=== PATIENT | male | born 1985 | race Caucasian/White ===

== ENCOUNTER 2016-07-15 16:16 | Inpatient (IN) | payer OTHER ==
[~2016-07-15] VITALS: Ht 182.9 cm; Wt 75.4 kg
[2016-07-15] VITALS (12 sets, daily range): BP systolic 100–134; BP diastolic 62–91; PULSE 58–66; RESP 16; O2SAT 98–100
[~2016-07-15 16:16] MED LIST: FLUO20CA4 PO; FOLI5CAP PO; GABA300C5 PO; IBUP800T23 PO; LITH300C2 PO; LURA40 PO; MIRTA15 PO; PRAZ2 PO; SERO200T PO; SERO400T PO; THIA50CA PO
[2016-07-15] MEDS ORDERED: ETOMIDATE 40 MG/20 ML VIAL ONE (16:21)
[2016-07-15] MEDS ORDERED: SUCCINYLCHOLINE CHLORIDE 200 MG/10 ML VIAL ONE (16:21)
[2016-07-15] MEDS ORDERED: PROPOFOL 1000 MG/100 ML INJ 100 ML ONE (16:22)
[2016-07-15] MEDS ORDERED: SODIUM CHLOR 0.9% 1000 ML INJ 1,000 ML IV SCH (16:40)
[2016-07-15] MEDS ORDERED: SODIUM CHLORIDE 0.9% FLUSH 5 ML FLUSH IVF PRN (16:45)
[2016-07-15] MEDS ORDERED: PROPOFOL 1000 MG/100 ML INJ 100 ML IV SCH (17:00)
[2016-07-15] MEDS ORDERED: SUCCINYLCHOLINE CHLORIDE 200 MG/10 ML VIAL IV PUSH ONE (17:00)
[2016-07-15] MEDS ORDERED: ETOMIDATE 20 MG/10 ML VIAL IV PUSH ONE (17:00)
[2016-07-15 17:09] LABS: AUTOMATED NEUTROPHIL # 4.7 TH/MM3 (1.8-7.7); BASOPHIL % 0.3 % (0.0-2.0); EOSINOPHIL % 0.6 % (0.0-4.0); HEMO FLAGS DIFF FINAL; LYMPH % 18.5 % (9.0-44.0); LYMPHOCYTE # 1.2 TH/MM3 (1.0-4.8); MEAN CELL VOLUME 89.5 FL (80.0-100.0); MEAN CORPUSCULAR HEMOGLOBIN 30.4 PG (27.0-34.0); MONO % 9.2 % (0.0-8.0); NEUT % 71.4 % (16.0-70.0); PLATELET COUNT 211 TH/MM3 (150-450); RED BLOOD COUNT 5.03 MIL/MM3 (4.50-5.90); WHITE BLOOD COUNT 6.6 TH/MM3 (4.0-11.0)
--- NOTE | 2016-07-15 17:19 | RADRPT ---
EXAM DATE/TIME: 07/15/2016 14:52 [place] COMPARISON: CHEST SINGLE AP, May 19, 2013, 14:56. INDICATIONS : Patient overdosed. MEDICAL HISTORY : schizophrenia, bipolar. SURGICAL HISTORY : None. ENCOUNTER: Initial ACUITY: 1 day PAIN SCORE: Non-responsive. LOCATION: Bilateral chest FINDINGS: A single view of the chest demonstrates the lungs to be symmetrically aerated without evidence of mas s, infiltrate or effusion. The cardiomediastinal contours are unremarkable. Osseous structures are intact. Endotracheal tube appropriately positioned above the alexadner. Nasogastric tube is seen in the gastric fundus. CONCLUSION: No acute cardiopulmonary process. Joesph Tamayo MD on July 15, 2016 at 17:17 Board Certified Radiologist. This report was verified electronically.
[2016-07-15 17:25] LABS: APTT (PATIENT) 26.5 SEC (24.3-30.1); PROTHROMBIN TIME - PATIENT 10.5 SEC (9.8-11.6)
[2016-07-15 17:26] LABS: BLOOD, URINE NEG (NEG); GLUCOSE,URINE NEG (NEG); KETONE, URINE NEG (NEG); MUCUS URINE FEW /lpf (OCC); NITRITE,URINE NEG (NEG); URINE COLOR LIGHT-YELLOW (YELLW/STRAW)
[2016-07-15 17:28] LABS: COMMENT (UR) CATH-CULT NOT IND; CULTURE IF INDICATED CATH CULTURE NOT IND
[2016-07-15 17:29] LABS: AMPHETAMINE, URINE POS (NEG); BARBITURATES, URINE NEG (NEG); COCAINE, URINE POS (NEG)
[2016-07-15 17:41] LABS: ALKALINE PHOSPHATASE 131 U/L (45-117); ALT (GPT) 34 U/L (12-78); ANION GAP 5 MEQ/L (5-15); AST (GOT) 39 U/L (15-37); BICARBONATE 27.4 MEQ/L (21.0-32.0); BLOOD UREA NITROGEN 9 MG/DL (7-18); CHLORIDE 106 MEQ/L (98-107); CREATINE KINASE 264 U/L (39-308); GLOMERULAR FILTRATION RATE 88 ML/MIN (>89); SODIUM (NA) 138 MEQ/L (136-145); TOTAL BILIRUBIN ADULT 0.5 MG/DL (0.2-1.0)
[2016-07-15 17:42] LABS: ACETAMINOPHEN LESS THAN 2.0 MCG/ML (10.0-30.0)
--- NOTE | 2016-07-15 17:45 | PD ---
HPI Chief Complaint: Alcohol/Drug Intoxication Time Seen by Provider: 16:40 Travel History International Travel<30 days: No (UNABLE TO ASSESS ) Contact w/Intl Traveler<30days: No (UNABLE TO ASSESS ) Traveled to known affect area: No (UNABLE TO ASSESS ) History of Present Illness HPI Patient is a 30-year-old male brought in by EMS with OPA in place, ventilations assisted by BVM. Per EMS patient took some of his mother's pills at home in an attempt to commit suicide. Per EMS he has history of suicide attempts in the past. Patient is unconscious, cannot provide any history. PFSH Past Medical History Medical History: Unable to Obtain ADHD: Yes ( A CHILD) Arthritis: No Asthma: No Bipolar Disorder: Yes Anxiety: Yes Depression: Yes High Cholesterol: No Cerebrovascular Accident: Yes Diminished Hearing: No Endocrine: No Gastrointestinal Disorders: Yes GERD: Yes Genitourinary: No Hiatal Hernia: Yes (POSSIBLE) Hypertension: No Immune Disorder: No Implanted Vascular Access Dvce: No Kidney Stones: No Musculoskeletal: Yes Neurologic: No Psychiatric: Yes (Bipolar Disorder, Schizophrenia, borderline personailty, anxiety) Reproductive: No Respiratory: No Immunizations Current: Yes Migraines: No Schizophrenia: Yes Sleep Apnea: No Thyroid Disease: No Ulcer: No Tetanus Vaccination: < 5 Years Influenza Vaccination: No (UNABLE TO ASSESS) Past Surgical History Surgical History: Unable to Obtain Pacemaker: No Other Surgery: No Social History Alcohol Use: Yes (DAILY) Tobacco Use: Yes (1 PPD ) Substance Use: Yes Allergies-Medications (Allergen,Severity, Reaction): Coded Allergies: *MDRO Multi-Drug Resistant Organism (Verified Adverse Reaction, Unknown, ) MRSA (arm) - 10/2013 MRSA PCR screen (nares) negative - 12/23/15 & 12/27/15 Cleared per Infection Control Reported Meds & Prescriptions Reported Meds & Active Scripts Active Ibuprofen 800 Mg Tab 800 Mg PO Q8H PRN Reported Fluoxetine (Fluoxetine HCl) 20 Mg Cap 20 Mg PO DAILY Thiamine (Thiamine HCl) 50 Mg Cap 50 Mg PO DAILY Gabapentin 300 Mg Cap 300 Mg PO TID Mirtazapine 15 Mg Tab 15 Mg PO HS Minipress (Prazosin HCl) 2 Mg Cap 2 Mg PO BID [place] Carbonate 300 Mg Cap 300 Mg PO TID Latuda (Lurasidone) 40 Mg Tab 40 Mg PO DAILY Folic Acid 5 Mg Cap 5 Mg PO DAILY Seroquel (Quetiapine Fumarate) 400 Mg Tab 400 Mg PO HS Seroquel (Quetiapine Fumarate) 200 Mg Tab 200 Mg PO BID Review of Systems ROS Limitations: Clinical Condition, Unresponsive Physical Exam Exam Limitations: Clinical Condition Narrative GENERAL: Unresponsive SKIN: Warm and dry. Superficial abrasion across the front of the neck. HEAD: Atraumatic. Normocephalic. EYES: Pupils equal and round. No scleral icterus. ENT:Mucous membranes pink and moist. NECK: Trachea midline. No JVD. CARDIOVASCULAR: Regular rate and rhythm. No murmur appreciated. RESPIRATORY: No accessory muscle use. Clear to auscultation. Breath sounds equal bilaterally. GASTROINTESTINAL: Abdomen soft, non-tender, nondistended. MUSCULOSKELETAL: No obvious deformities. No clubbing. No cyanosis. No edema. NEUROLOGICAL: Unresponsive. He does move his extremities, but has no response to painful stimuli. Data Data Last Documented VS Vital Signs Date Time Temp Pulse Resp B/P Pulse Ox O2 Delivery O2 Flow Rate FiO2 07/15/16 17:30 58 16 106/68 100 Ventilator 100 07/15/16 16:20 15 Orders Etomidate Inj (Amidate Inj) (07/15/16 16:21) Succinylcholine Inj (Quelicin Inj) (07/15/16 16:21) Propofol 1000 Mg/100 Ml Inj (Diprivan 10 (07/15/16 16:22) Ammonia (07/15/16 16:40) Complete Blood Count With Diff (07/15/16 16:40) Comprehensive Metabolic Panel (07/15/16 16:40) Creatine Kinase (Cpk) (07/15/16 16:40) Prothrombin Time / Inr (Pt) (07/15/16 16:40) Act Partial Throm Time (Ptt) (07/15/16 16:40) Troponin I (07/15/16 16:40) Urinalysis - C+S If Indicated (07/15/16 16:40) Ua Includes Microscopic (07/15/16 16:40) Chest, Single Ap (07/15/16 16:40) Blood Glucose (07/15/16 16:40) Ecg Monitoring (07/15/16 16:40) Iv Access Insert/Monitor (07/15/16 16:40) Oximetry (07/15/16 16:40) Urinary Catheter Insert/Apply (07/15/16 16:40) Sodium Chloride 0.9% Flush (Ns Flush) (07/15/16 16:45) Sodium Chlor 0.9% 1000 Ml Inj (Ns 1000 M (07/15/16 16:40) Drug Screen, Random Urine (07/15/16 16:40) Alcohol (Ethanol) (07/15/16 16:40) Tylenol (Acetaminophen) (07/15/16 16:40) Salicylates (Aspirin) (07/15/16 16:40) Etomidate Inj (Amidate Inj) (07/15/16 17:00) Succinylcholine Inj (Quelicin Inj) (07/15/16 17:00) Propofol 1000 Mg/100 Ml Inj (Diprivan 10 (07/15/16 17:00) Admit Order (Ed Use Only) (07/15/16 ) Consult Psychiatry (07/15/16 ) Direct Bilirubin (07/15/16 16:45) Labs Laboratory Tests Test 07/15/16 16:45 White Blood Count 6.6 TH/MM3 Red Blood Count 5.03 MIL/MM3 Hemoglobin 15.3 GM/DL Hematocrit 45.0 % Mean Corpuscular Volume 89.5 FL Mean Corpuscular Hemoglobin 30.4 PG Mean Corpuscular Hemoglobin 34.0 % Concent Red Cell Distribution Width 14.0 % Platelet Count 211 TH/MM3 Mean Platelet Volume 9.6 FL Neutrophils (%) (Auto) 71.4 % Lymphocytes (%) (Auto) 18.5 % Monocytes (%) (Auto) 9.2 % Eosinophils (%) (Auto) 0.6 % Basophils (%) (Auto) 0.3 % Neutrophils # (Auto) 4.7 TH/MM3 Lymphocytes # (Auto) 1.2 TH/MM3 Monocytes # (Auto) 0.6 TH/MM3 Eosinophils # (Auto) 0.0 TH/MM3 Basophils # (Auto) 0.0 TH/MM3 CBC Comment DIFF FINAL Differential Comment Prothrombin Time 10.5 SEC Prothromb Time International 1.0 RATIO Ratio Activated Partial 26.5 SEC Thromboplast Time Urine Color LIGHT-YELLOW Urine Turbidity CLEAR Urine pH 5.0 Urine Specific [place] 1.007 Urine Protein NEG mg/dL Urine Glucose (UA) NEG mg/dL Urine Ketones NEG mg/dL Urine Occult Blood NEG Urine Nitrite NEG Urine Bilirubin NEG Urine Urobilinogen LESS THAN 2.0 MG/DL Urine Leukocyte Esterase NEG Urine RBC LESS THAN 1 /hpf Urine WBC 1 /hpf Urine Bacteria /hpf Urine Mucus FEW /lpf Microscopic Urinalysis Comment CATH-CULT NOT IND Sodium Level 138 MEQ/L Potassium Level 5.0 MEQ/L Chloride Level 106 MEQ/L Carbon Dioxide Level 27.4 MEQ/L Anion Gap 5 MEQ/L Blood Urea Nitrogen 9 MG/DL Creatinine 0.99 MG/DL Estimat Glomerular Filtration 88 ML/MIN Rate Random Glucose 100 MG/DL Calcium Level 9.0 MG/DL Total Bilirubin 0.5 MG/DL Direct Bilirubin 0.1 MG/DL Aspartate Amino Transf 39 U/L (AST/SGOT) Alanine Aminotransferase 34 U/L (ALT/SGPT) Alkaline Phosphatase 131 U/L Ammonia 26 MCMOL/L Total Creatine Kinase 264 U/L Troponin I LESS THAN 0.02 NG/ML Total Protein 7.1 GM/DL Albumin 3.4 GM/DL Salicylates Level 4.5 MG/DL Urine Opiates Screen NEG Acetaminophen Level LESS THAN 2.0 MCG/ML Urine Barbiturates Screen NEG Urine Amphetamines Screen POS Urine Benzodiazepines Screen POS Urine Cocaine Screen POS Urine Cannabinoids Screen POS Ethyl Alcohol Level LESS THAN 3 MG/DL MDM Medical Decision Making Medical Screen Exam Complete: Yes Emergency Medical Condition: Yes Medical Record Reviewed: Yes Interpretation(s) ECG shows sinus rhythm at 64, no evidence of QT prolongation or QRS widening. Differential Diagnosis Drug overdose versus intoxication versus infection versus encephalopathy Narrative Course Patient is a 30-year-old male who is brought in by EMS unresponsive. Per EMS she took several pills today. EMS brought M.D. pill bottles for clopidogrel, metoprolol, sertraline, amitriptyline, gabapentin, nitroglycerine. Family on scene was unable to express when he took the pills. Patient placed on telemetry monitor when he arrived. IV was established by EMS. Decision made to intubate. Patient intubated without incident and connected to the ventilator. Patient started on propofol drip for sedation. Labs sent. Urine drug screen is positive for amphetamines, benzodiazepines, opiates, cocaine. The nurse spoke with poison control who suggests observation for QT prolongation and hypotension. If QT prolongs or QRS widens, will need bicarb. Supportive care otherwise. Psych consult placed, patient is under a [place] Act. Patient admitted to ICU for further management. Procedures Procedure Narrative Performed emergently INTUBATION: The patient was put in optimal position for the procedure. Rapid sequence intubation was initiated by me using 20 milligrams of etomidate IV and 100 milligrams of succinylcholine IV. The patient was intubated with a 8.0 cuffed endotracheal tube. Tube placement was confirmed by visualization of the tube and balloon passing through the cords, capnometry and subsequent chest x-ray. Breath sounds were equal and well aerated bilaterally postintubation. No breath sounds over stomach. Patient tolerated procedure well. Diagnosis Primary Impression: Respiratory failure Qualified Code: J96.00 - Acute respiratory failure, unspecified whether with hypoxia or hypercapnia Additional Impression: Suicidal overdose Qualified Code: T50.902A - Suicidal overdose, initial encounter Admitting Information Admitting Physician Requests: Admit Zoya Collins MD Jul 15, 2016 17:45
[2016-07-15] MEDS ORDERED: MISCELLANEOUS NURSING INFORMATION XX SCH (18:00)
[2016-07-15] MEDS ORDERED: ACETAMINOPHEN 325 MG TAB PO PRN (18:00)
[2016-07-15] MEDS ORDERED: CHLORHEXIDINE GLUCONATE 2 % 1 PACK (2 CLOTHS) TOP PRN (18:00)
[2016-07-15] MEDS ORDERED: MORPHINE SULFATE 4 MG/ML INJ IV PRN (18:00)
[2016-07-15] MEDS ORDERED: LORazepam 2 MG/ML VIAL IV PRN (18:00)
[2016-07-15] MEDS ORDERED: ONDANSETRON HCL 4 MG/2 ML VIAL IV PRN (18:00)
[2016-07-15] MEDS ORDERED: SODIUM CHLORIDE 0.9% FLUSH 5 ML FLUSH IV FLUSH PRN (18:00)
[2016-07-15] MEDS ORDERED: RESP: ALBUTEROL 2.5 MG/IPRATROPIUM 0.5 MG NEB (PRN) INH (18:00)
[2016-07-15] MEDS ORDERED: METOCLOPRAMIDE HCL 10 MG/2 ML VIAL IV PRN (18:00)
--- NOTE | 2016-07-15 18:04 | HHI.HP ---
HPI Service Critical Care Medicine Primary Care Physician No Primary Care Physician Admission Diagnosis Overdose Diagnosis: Travel History International Travel<30 Days: No (UNABLE TO ASSESS ) Contact w/Intl Traveler <30 Da: No (UNABLE TO ASSESS ) Traveled to Known Affected Are: No (UNABLE TO ASSESS ) History of Present Illness 30-year-old very unfortunate male with history of depressions and polysubstance abuse brought in by EMS with OPA in place, ventilations assisted by BVM. Per EMS patient took some of his mother's pills at home in an attempt to commit suicide. He has history of suicide attempts in the past. Patient was unresponsive and was intubated by ER attending. Review of Systems ROS Unable to obtain patient is sedated and intubated Past Family Social History Allergies: Coded Allergies: *MDRO Multi-Drug Resistant Organism (Verified Adverse Reaction, Unknown, Cleared, 07/16/16) MRSA (arm) - 10/2013 MRSA PCR screen (nares) negative - 12/23/15 & 12/27/15 Cleared per Infection Control Past Medical History Polysubstance abuse Depression Multiple suicidal attempts Past Surgical History Unable to obtain patient is sedated and intubated Reported Medications Reported Meds & Active Scripts Active Ibuprofen 800 Mg Tab 800 Mg PO Q8H PRN Reported Fluoxetine (Fluoxetine HCl) 20 Mg Cap 20 Mg PO DAILY Thiamine (Thiamine HCl) 50 Mg Cap 50 Mg PO DAILY Gabapentin 300 Mg Cap 300 Mg PO TID Mirtazapine 15 Mg Tab 15 Mg PO HS Minipress (Prazosin HCl) 2 Mg Cap 2 Mg PO BID [place] Carbonate 300 Mg Cap 300 Mg PO TID Latuda (Lurasidone) 40 Mg Tab 40 Mg PO DAILY Folic Acid 5 Mg Cap 5 Mg PO DAILY Seroquel (Quetiapine Fumarate) 400 Mg Tab 400 Mg PO HS Seroquel (Quetiapine Fumarate) 200 Mg Tab 200 Mg PO BID Active Ordered Medications Current Medications Medications (Trade) Dose Ordered Sig/Vanessa Route PRN Reason Start Time Stop Time Status Last Admin Dose Admin Sodium Chloride (NS 1000 ml Inj) 1,000 ml @ 150 mls/hr Q6H40M IV 07/15/16 20:00 07/16/16 08:56 IV Flush (NS Flush) 2 ml UNSCH PRN IV FLUSH FLUSH AFTER USING IV ACCESS 07/15/16 18:00 IV Flush (NS Flush) 2 ml BID IV FLUSH 07/15/16 21:00 07/16/16 08:56 Acetaminophen (Tylenol) 650 mg Q6H PRN PO PAIN 1-10 AND/OR FEVER >101F 07/15/16 18:00 Morphine Sulfate (Morphine Inj) 2 mg Q2H PRN IV PAIN SCALE 6 TO 10 07/15/16 18:00 Famotidine (Pepcid Inj) 20 mg Q12HR IV PUSH 07/15/16 21:00 07/16/16 08:56 Lorazepam (Ativan Inj) 2 mg Q4H PRN IV Agitation/Sedation 07/15/16 18:00 Ondansetron HCl (Zofran Inj) 4 mg Q6H PRN IV NAUSEA OR VOMITING 07/15/16 18:00 Metoclopramide HCl (Reglan Inj) 10 mg Q6H PRN IV NAUSEA OR VOMITING 07/15/16 18:00 Docusate Sodium (Colace Liq) 100 mg Q12H G-TUBE 07/15/16 18:00 07/16/16 06:11 Enoxaparin Sodium (Lovenox Inj) 40 mg Q24H SQ 07/15/16 20:00 07/15/16 20:28 Miscellaneous Information 1 Q361D XX 07/15/16 18:00 07/15/16 18:00 Chlorhexidine Gluconate (Chlorhexidine 2% Cloth) 3 pack Taper DAILY@04 TOP 07/16/16 04:00 07/12/17 03:59 07/16/16 03:04 Chlorhexidine Gluconate 3 pack 3 pack UNSCH PRN TOP HYGIENIC CARE 07/15/16 18:00 Propofol (Diprivan 1000 Mg/100ml Inj) 100 ml @ 0 mls/hr TITRATE IV 07/15/16 18:00 07/16/16 08:56 Family History Noncontributory Social History Polysubstance abuse Physical Exam Vital Signs Vital Signs Date Time Temp Pulse Resp B/P Pulse Ox O2 Delivery O2 Flow Rate FiO2 07/15/16 16:28 100 07/15/16 16:20 66 16 98 Bag Valve 15 07/15/16 16:16 63 16 122/81 98 Physical Exam GENERAL: Well-nourished, well-developed patient. SKIN: Warm and dry. HEAD: Normocephalic. EYES: No scleral icterus. No injection or drainage. NECK: Supple, trachea midline. No JVD or lymphadenopathy. CARDIOVASCULAR: Regular rate and rhythm without murmurs, gallops, or rubs. RESPIRATORY: Breath sounds equal bilaterally. No accessory muscle use. GASTROINTESTINAL: Abdomen soft, non-tender, nondistended. MUSCULOSKELETAL: No cyanosis, or edema. BACK: Nontender without obvious deformity. No CVA tenderness. Laboratory Laboratory Tests Test 07/15/16 16:45 White Blood Count 6.6 Red Blood Count 5.03 Hemoglobin 15.3 Hematocrit 45.0 Mean Corpuscular Volume 89.5 Mean Corpuscular Hemoglobin 30.4 Mean Corpuscular Hemoglobin 34.0 Concent Red Cell Distribution Width 14.0 Platelet Count 211 Mean Platelet Volume 9.6 Neutrophils (%) (Auto) 71.4 Lymphocytes (%) (Auto) 18.5 Monocytes (%) (Auto) 9.2 Eosinophils (%) (Auto) 0.6 Basophils (%) (Auto) 0.3 Neutrophils # (Auto) 4.7 Lymphocytes # (Auto) 1.2 Monocytes # (Auto) 0.6 Eosinophils # (Auto) 0.0 Basophils # (Auto) 0.0 CBC Comment DIFF FINAL Differential Comment Prothrombin Time 10.5 Prothromb Time International 1.0 Ratio Activated Partial 26.5 Thromboplast Time Urine Color LIGHT-YELLOW Urine Turbidity CLEAR Urine pH 5.0 Urine Specific [place] 1.007 Urine Protein NEG Urine Glucose (UA) NEG Urine Ketones NEG Urine Occult Blood NEG Urine Nitrite NEG Urine Bilirubin NEG Urine Urobilinogen LESS THAN 2.0 Urine Leukocyte Esterase NEG Urine RBC LESS THAN 1 Urine WBC 1 Urine Bacteria Urine Mucus FEW Microscopic Urinalysis Comment CATH-CULT NOT IND Sodium Level 138 Potassium Level 5.0 Chloride Level 106 Carbon Dioxide Level 27.4 Anion Gap 5 Blood Urea Nitrogen 9 Creatinine 0.99 Estimat Glomerular Filtration 88 Rate Random Glucose 100 Calcium Level 9.0 Total Bilirubin 0.5 Aspartate Amino Transf 39 (AST/SGOT) Alanine Aminotransferase 34 (ALT/SGPT) Alkaline Phosphatase 131 Ammonia 26 Total Creatine Kinase 264 Troponin I LESS THAN 0.02 Total Protein 7.1 Albumin 3.4 Salicylates Level 4.5 Urine Opiates Screen NEG Acetaminophen Level LESS THAN 2.0 Urine Barbiturates Screen NEG Urine Amphetamines Screen POS Urine Benzodiazepines Screen POS Urine Cocaine Screen POS Urine Cannabinoids Screen POS Ethyl Alcohol Level LESS THAN 3 Result Diagram: 07/15/16 1645 07/15/16 1645 Imaging Last 24 hours Impressions Chest X-Ray 07/15/16 1640 Signed Impressions: Service Date/Time: Friday, July 15, 2016 14:52 - CONCLUSION: No acute cardiopulmonary process. Joesph Tamayo MD Assessment and Plan Problem List: (1) Bipolar affective disorder ICD Code: F31.9 Status: Acute (2) Substance intoxication ICD Code: F19.129 Status: Acute (3) Substance abuse ICD Code: F19.10 Status: Acute (4) Respiratory failure ICD Code: J96.90 Status: Acute (5) Suicidal overdose ICD Code: T50.902A Status: Acute Assessment and Plan Respiratory failure - Continue mechanical ventilation - Intubated for an airway protection - No weaning until neurologically improved Suicidal attempt - Psychiatry evaluation after extubation Depression - Resume home meds per psychiatry Polysubstance overdose - Including possible tricyclic antidepressants - Discussed with poison center - No bicarbonate indicated due to normal EKG DVT GI prophylaxis - Lovenox and Pepcid Critical Care: The total critical care time was 35 minutes. Time to perform other separately billable procedures was not included in the critical care time. Problem Qualifiers (1) Respiratory failure: Qualified Code: J96.00 - Acute respiratory failure, unspecified whether with hypoxia or hypercapnia (2) Suicidal overdose: Qualified Code: T50.902A - Suicidal overdose, initial encounter Bud Mosher MD Jul 15, 2016 18:03
[2016-07-15 18:19] LABS: BLOOD GAS BASE EXCESS 0.7 mmol/L (-2-2); BLOOD GAS CARBOXYHEMOGLOBIN 2.9 % (0-4); BLOOD GAS HCO3 25 mmol/L (22-26); BLOOD GAS METHEMOGLOBIN 1.9 % (0-2); BLOOD GAS O2 HGB SATURATION 95 % (90-100); BLOOD GAS OXYGEN CONTENT 21.7 Vol % (12.0-20.0); BLOOD GAS PCO2 39 mmHg (38-42); BLOOD GAS PO2 470 mmHG (61-120); BLOOD GAS TOTAL HGB 15.4 G/DL (12.0-16.0); TEMP CORR TO 98.6
[2016-07-15 18:20] LABS: CRITICAL VALUE NO; DRAW SITE RT RADIAL; FIO2 100 %; NUMBER OF ARTERIAL PUNCTURES 1; OXYGEN DEVICE VENTILATOR; STAT NO; ULNAR PULSE PRESENT; VENT SETTINGS SEE COMMENTS
[2016-07-15] MEDS: PROPOFOL 1000 MG/100 ML INJ 100 ML IV SCH (20:22)
[2016-07-15] MEDS: SODIUM CHLOR 0.9% 1000 ML INJ 1,000 ML IV SCH (20:28)
[2016-07-15] MEDS: ENOXAPARIN SODIUM 40 MG/0.4 ML SYRINGE SQ SCH (20:28)
[2016-07-15] MEDS: DOCUSATE SODIUM 100 MG/10 ML UDC G-TUBE SCH (20:29)
[2016-07-15] MEDS: SODIUM CHLORIDE 0.9% FLUSH 5 ML FLUSH IV FLUSH SCH (20:52)
[2016-07-15] MEDS: FAMOTIDINE 20 MG/2 ML VIAL IV PUSH SCH (22:36)
[2016-07-16] VITALS (20 sets, daily range): BP systolic 111–154; BP diastolic 69–109; PULSE 58–74; RESP 12–17; TEMP 97.4–99; O2SAT 97–100
[2016-07-16] MEDS: PROPOFOL 1000 MG/100 ML INJ 100 ML IV SCH ×2 (02:13→08:56)
[2016-07-16] MEDS: CHLORHEXIDINE GLUCONATE 2 % 1 PACK (2 CLOTHS) TOP SCH (03:04)
[2016-07-16] MEDS: SODIUM CHLOR 0.9% 1000 ML INJ 1,000 ML IV SCH ×4 (03:07→21:55)
[2016-07-16 03:48] LABS: AUTOMATED NEUTROPHIL # 5.8 TH/MM3 (1.8-7.7); BASOPHIL % 0.4 % (0.0-2.0); EOSINOPHIL % 0.5 % (0.0-4.0); HEMATOCRIT 43.7 % (39.0-51.0); HEMO FLAGS DIFF FINAL; LYMPH % 20.8 % (9.0-44.0); LYMPHOCYTE # 1.8 TH/MM3 (1.0-4.8); MEAN CELL VOLUME 89.5 FL (80.0-100.0); MEAN CORPUSCULAR HEMOGLOBIN 30.3 PG (27.0-34.0); MEAN CORPUSCULAR HGB CONC 33.9 % (32.0-36.0); MONO % 9.4 % (0.0-8.0); NEUT % 68.9 % (16.0-70.0); PLATELET COUNT 178 TH/MM3 (150-450); RED BLOOD COUNT 4.89 MIL/MM3 (4.50-5.90); RED CELL DISTRIBUTION WIDTH 14.1 % (11.6-17.2); WHITE BLOOD COUNT 8.5 TH/MM3 (4.0-11.0)
[2016-07-16 03:56] LABS: PROTHROMBIN TIME - PATIENT 10.7 SEC (9.8-11.6)
[2016-07-16 04:08] LABS: MAGNESIUM 2.1 MG/DL (1.5-2.5)
--- NOTE | 2016-07-16 05:01 | EKG ---
Date Performed: 07/15/2016 Time Performed: 18:20:28 PTAGE: 30 years EKG: SINUS BRADYCARDIA ST ELEVATION, PROBABLY EARLY REPOLARIZATION BORDERLINE ECG NO SIGNIFICANT CHANGE FROM PRIOR ELECTROCARDIOGRAM. PREVIOUS TRACING : 07/15/2016 16.32 DOCTOR: Kei Garcia Interpretating Date/Time 07/16/2016 04:59:23
--- NOTE | 2016-07-16 05:03 | EKG ---
Date Performed: 07/15/2016 Time Performed: 16:32:08 PTAGE: 30 years EKG: Sinus rhythm ST ELEVATION, PROBABLY EARLY REPOLARIZATION BORDERLINE ECG NO SIGNIFICANT CHANGE FROM PRIOR ELECTROC ARDIOGRAM. PREVIOUS TRACING : 08/23/2015 22.02 DOCTOR: Kei Garcia Interpretating Date/Time 07/16/2016 05:02:24
[2016-07-16] MEDS: DOCUSATE SODIUM 100 MG/10 ML UDC G-TUBE SCH ×2 (06:11→18:00)
--- NOTE | 2016-07-16 08:03 | EKG ---
Date Performed: 07/16/2016 Time Performed: 05:23:04 PTAGE: 30 years EKG: BASELINE ARTIFACT PRESENT. Sinus bradycardia Normal ECG except for rate Within the constrai nts of artifact, no significant change. PREVIOUS TRACING : 07/15/2016 23.40 DOCTOR: Kei Garcia Interpretating Date/Time 07/16/2016 08:02:08
--- NOTE | 2016-07-16 08:12 | EKG ---
Date Performed: 07/15/2016 Time Performed: 23:40:18 PTAGE: 30 years EKG: Sinus rhythm NORMAL ECG NO SIGNIFICANT CHANGE FROM PRIOR ELECTROCARDIOGRAM. PREVIOUS TRACING : 07/15/2016 18.20 DOCTOR: Kei Garcia Interpretating Date/Time 07/16/2016 08:12:24
[2016-07-16] MEDS: FAMOTIDINE 20 MG/2 ML VIAL IV PUSH SCH ×2 (08:56→21:52)
[2016-07-16] MEDS: SODIUM CHLORIDE 0.9% FLUSH 5 ML FLUSH IV FLUSH SCH ×2 (08:56→21:53)
--- NOTE | 2016-07-16 13:35 | PD.CONS ---
Provisional Diagnosis Admission Date Jul 15, 2016 at 17:46 History of Present Illness Service Psychiatry Consult Requested By Primary Care Physician No Primary Care Physician HPI Patient is currently intubated, sedated unable to participate in psychiatric interview and provide information for the assessment Past Family Social History Coded Allergies: *MDRO Multi-Drug Resistant Organism (Verified Adverse Reaction, Unknown, Cleared, 07/16/16) MRSA (arm) - 10/2013 MRSA PCR screen (nares) negative - 12/23/15 & 12/27/15 Cleared per Infection Control Active Scripts Ibuprofen 800 Mg [id number] Mg PO Q8H PRN (Pain/Inflammation) #30 TAB Prov:Susan Lockwood DO 05/11/16 Reported Medications Fluoxetine 20 Mg Cap20 Mg PO DAILY #30 CAP Ref 0 04/15/16 Thiamine 50 Mg Cap50 Mg PO DAILY Ref 0 04/15/16 Gabapentin 300 Mg [id number] Mg PO TID #90 CAP Ref 0 04/15/16 Mirtazapine 15 Mg Tab15 Mg PO HS #30 TAB Ref 0 04/15/16 Prazosin (Minipress)2 Mg Cap2 Mg PO BID #60 CAP Ref 0 04/15/16 [place] Carbonate 300 Mg [id number] Mg PO TID Ref 0 04/15/16 Lurasidone (Latuda)40 Mg Tab40 Mg PO DAILY #30 TAB Ref 0 04/15/16 Folic Acid 5 Mg Cap5 Mg PO DAILY Ref 0 04/15/16 Quetiapine (Seroquel)400 Mg [id number] Mg PO HS #30 TAB Ref 0 04/15/16 Quetiapine (Seroquel)200 Mg [id number] Mg PO BID #60 TAB Ref 0 04/15/16 Current Medications Medications (Trade) Dose Ordered Sig/Vanessa Route Start Time Stop Time Status Last Admin (NS 1000 ml Inj) 1,000 ml @ 150 mls/hr Q6H40M IV 07/15/16 20:00 07/16/16 08:56 (NS Flush) 2 ml UNSCH PRN IV FLUSH 07/15/16 18:00 (NS Flush) 2 ml BID IV FLUSH 07/15/16 21:00 07/16/16 08:56 (Tylenol) 650 mg Q6H PRN PO 07/15/16 18:00 (Morphine Inj) 2 mg Q2H PRN IV 07/15/16 18:00 (Pepcid Inj) 20 mg Q12HR IV PUSH 07/15/16 21:00 07/16/16 08:56 (Ativan Inj) 2 mg Q4H PRN IV 07/15/16 18:00 (Zofran Inj) 4 mg Q6H PRN IV 07/15/16 18:00 (Reglan Inj) 10 mg Q6H PRN IV 07/15/16 18:00 (Colace Liq) 100 mg Q12H G-TUBE 07/15/16 18:00 07/16/16 06:11 (Lovenox Inj) 40 mg Q24H SQ 07/15/16 20:00 07/15/16 20:28 Miscellaneous Information 1 Q361D XX 07/15/16 18:00 07/15/16 18:00 (Chlorhexidine 2% Cloth) 3 pack Taper DAILY@04 TOP 07/16/16 04:00 07/12/17 03:59 07/16/16 03:04 Chlorhexidine Gluconate 3 pack 3 pack UNSCH PRN TOP 07/15/16 18:00 (Diprivan 1000 Mg/100ml Inj) 100 ml @ 0 mls/hr TITRATE IV 07/15/16 18:00 07/16/16 08:56 Physical Exam Vital Signs Vital Signs Date Time Temp Pulse Resp B/P Pulse Ox O2 Delivery O2 Flow Rate FiO2 07/16/16 11:11 100 40 07/16/16 10:00 64 07/16/16 08:00 98.4 16 151/104 07/15/16 23:58 Ventilator 07/15/16 16:20 15 Assessment & Plan Problem List: (1) Suicidal overdose Assessment & Plan: Patient is currently intubated, sedated unable to participate in psychiatric interview and provide information for the assessment. Please continue aggressive medical treatment as needed, reconsult once patient is awake and able to cooperate, also can call to my cellphone [phone]. Thanks! ICD Code: T50.902A Assessment & Plan Estimated LOS: days Problem Qualifiers (1) Suicidal overdose: Qualified Code: T50.902A - Suicidal overdose, initial encounter Juvenal Hyatt MD Jul 16, 2016 13:35
--- NOTE | 2016-07-16 15:44 | HHI.CCPN ---
Subjective Remarks/Hospital Course 30-year-old very unfortunate male with history of depressions and polysubstance abuse brought in by EMS with OPA in place, ventilations assisted by BVM. Per EMS patient took some of his mother's pills at home in an attempt to commit suicide. He has history of suicide attempts in the past. Patient was unresponsive and was intubated by ER attending. Objective Vital Signs Date Time Temp Pulse Resp B/P Pulse Ox O2 Delivery O2 Flow Rate FiO2 07/16/16 14:00 69 07/16/16 12:00 40 07/16/16 12:00 99.0 12 126/76 100 07/15/16 23:58 Ventilator 07/15/16 16:20 15 Result Diagram: 07/16/16 0326 07/15/16 1645 Other Results Laboratory Tests Test 07/15/16 18:15 Blood Gas Puncture Site RT RADIAL Blood Gas Patient Temperature 98.6 Blood Gas HCO3 25 mmol/L (22-26) Blood Gas Base Excess 0.7 mmol/L (-2-2) Blood Gas Oxygen Saturation 95 % (90-100) Arterial Blood pH 7.42 (7.380-7.420) Arterial Blood Partial 39 mmHg (38-42) Pressure CO2 Arterial Blood Partial 470 mmHG Pressure O2 (61-120) Arterial Blood Oxygen Content 21.7 Vol % (12.0-20.0) Arterial Blood 2.9 % (0-4) Carboxyhemoglobin Arterial Blood Methemoglobin 1.9 % (0-2) Blood Gas Hemoglobin 15.4 G/DL (12.0-16.0) Oxygen Delivery Device VENTILATOR Blood Gas Ventilator Setting SEE COMMENTS Blood Gas Inspired Oxygen 100 % Imaging Last 24 hours Impressions Chest X-Ray 07/15/16 1640 Signed Impressions: Service Date/Time: Friday, July 15, 2016 14:52 - CONCLUSION: No acute cardiopulmonary process. Joseph Tamayo MD Objective Remarks GENERAL: Well-nourished, well-developed patient. SKIN: Warm and dry. HEAD: Normocephalic. EYES: No scleral icterus. No injection or drainage. NECK: Supple, trachea midline. No JVD or lymphadenopathy. CARDIOVASCULAR: Regular rate and rhythm without murmurs, gallops, or rubs. RESPIRATORY: Breath sounds equal bilaterally. No accessory muscle use. GASTROINTESTINAL: Abdomen soft, non-tender, nondistended. MUSCULOSKELETAL: No cyanosis, or edema. BACK: Nontender without obvious deformity. No CVA tenderness. A/P Problem List: (1) Bipolar affective disorder ICD Code: F31.9 Status: Acute (2) Substance intoxication ICD Code: F19.129 Status: Acute (3) Substance abuse ICD Code: F19.10 Status: Acute (4) Respiratory failure ICD Code: J96.90 Status: Acute (5) Suicidal overdose ICD Code: T50.902A Status: Acute Assessment and Plan Respiratory failure - Continue mechanical ventilation - Intubated for an airway protection -Start weaning since patient's neurologically improved Suicidal attempt - Psychiatry evaluation after extubation Depression - Resume home medications per psychiatry Polysubstance overdose - Including possible tricyclic antidepressants - Discussed with poison center - No bicarbonate indicated due to normal EKG - Monitor for withdrawal DVT GI prophylaxis - Lovenox and Pepcid Critical Care: The total critical care time was 35 minutes. Time to perform other separately billable procedures was not included in the critical care time. Problem Qualifiers (1) Respiratory failure: Qualified Code: J96.00 - Acute respiratory failure, unspecified whether with hypoxia or hypercapnia (2) Suicidal overdose: Qualified Code: T50.902A - Suicidal overdose, initial encounter Bud Mosher MD Jul 16, 2016 15:44
[2016-07-16] MEDS: ENOXAPARIN SODIUM 40 MG/0.4 ML SYRINGE SQ SCH (21:53)
[2016-07-17] VITALS (12 sets, daily range): BP systolic 131–146; BP diastolic 73–90; PULSE 67–82; RESP 13–18; TEMP 98–98.4; O2SAT 94–100
[2016-07-17] MEDS: CHLORHEXIDINE GLUCONATE 2 % 1 PACK (2 CLOTHS) TOP SCH ×2 (04:00→21:34)
[2016-07-17] MEDS: SODIUM CHLOR 0.9% 1000 ML INJ 1,000 ML IV SCH ×3 (05:20→17:31)
[2016-07-17 05:59] LABS: AUTOMATED NEUTROPHIL # 5.9 TH/MM3 (1.8-7.7); BASOPHIL % 0.3 % (0.0-2.0); EOSINOPHIL # 0.1 TH/MM3 (0-0.4); EOSINOPHIL % 0.6 % (0.0-4.0); HEMATOCRIT 42.6 % (39.0-51.0); HEMO FLAGS DIFF FINAL; LYMPH % 18.4 % (9.0-44.0); LYMPHOCYTE # 1.6 TH/MM3 (1.0-4.8); MEAN CELL VOLUME 89.1 FL (80.0-100.0); MEAN CORPUSCULAR HEMOGLOBIN 30.3 PG (27.0-34.0); MEAN CORPUSCULAR HGB CONC 33.9 % (32.0-36.0); MONO % 10.4 % (0.0-8.0); NEUT % 70.3 % (16.0-70.0); PLATELET COUNT 150 TH/MM3 (150-450); RED BLOOD COUNT 4.78 MIL/MM3 (4.50-5.90); RED CELL DISTRIBUTION WIDTH 13.9 % (11.6-17.2); WHITE BLOOD COUNT 8.4 TH/MM3 (4.0-11.0)
[2016-07-17] MEDS: DOCUSATE SODIUM 100 MG/10 ML UDC G-TUBE SCH ×2 (06:00→17:31)
[2016-07-17 06:25] LABS: ALKALINE PHOSPHATASE 112 U/L (45-117); ALT (GPT) 43 U/L (12-78); ANION GAP 9 MEQ/L (5-15); AST (GOT) 72 U/L (15-37); BICARBONATE 24.8 MEQ/L (21.0-32.0); BLOOD UREA NITROGEN 4 MG/DL (7-18); CHLORIDE 109 MEQ/L (98-107); GLOMERULAR FILTRATION RATE 106 ML/MIN (>89); MAGNESIUM 1.8 MG/DL (1.5-2.5); POTASSIUM 3.3 MEQ/L (3.5-5.1); SODIUM (NA) 143 MEQ/L (136-145); TOTAL BILIRUBIN ADULT 0.4 MG/DL (0.2-1.0)
[2016-07-17] MEDS: SODIUM CHLORIDE 0.9% FLUSH 5 ML FLUSH IV FLUSH SCH ×2 (09:00→21:31)
[2016-07-17] MEDS: FAMOTIDINE 20 MG/2 ML VIAL IV PUSH SCH ×2 (09:18→21:31)
--- NOTE | 2016-07-17 15:35 | PD.CONS ---
Provisional Diagnosis Admission Date Jul 15, 2016 at 17:46 [place] I. Substance induced mood disorder, polysubstance dependence, including amphetamines, cannabis, cocaine, benzodiazepines, history of bipolar disorder [place] II. Unspecified personality disorder, cluster B traits [place] III. He denies [place] IV. Extensive history of polysubstance dependence [place] V. 55 History of Present Illness Service Psychiatry Consult Requested By Primary Care Physician No Primary Care Physician HPI The patient is a 30-year-old man, self reported homeless, unemployed, single, with extensive psychiatric history of polysubstance dependence, substance related disorder, bipolar disorder, numerous psychiatric hospitalizations, well known by this service, recently hospitalized here at [facility] under the care of Dr. Thao, documentation was widely reviewed, multiple previous suicidal attempts, history of self cutting behavior without SI , no significant medical history, who was brought to the hospital after an overdose with his mother's medication. Patient was consulted to psychiatry to assess potential suicidal attempt behind his recent overdose. Patient was seen for psychiatric evaluation in the ICU after extubation, he was cooperative, but irritable and kind of guarded. He states that he doesn't remember the reason his in the hospital, he says that he did not try to commit suicide by overdosing. He reports chronic depression, he says that he is on Latuda, lithium and Prozac with no doses, prescribed at [facility]. Patient says that he has been using multiple drugs recreationally "yesterday maybe a used to much, but I did not do it was suicidal intention". At the moment of this evaluation the patient denies depressive symptoms, denies anxiety, denies perceptual disturbances, denies suicidal or homicidal ideation, denies visual and auditory hallucinations. She is oriented 3, no gross cognitive impairment observed. Patient refused to quantify and qualified his drug addiction. But, he was positive for benzodiazepines, cocaine, amphetamines and cannabis. Review of Systems Constitutional: COMPLAINS OF: Fatigue, DENIES: Diaphoretic episodes, Fever, Weight gain, Weight loss, Chills, Dizziness, Change in appetite, Night Sweats Endocrine: DENIES: Heat/cold intolerance, Polydipsia, Polyuria, Polyphagia Eyes: DENIES: Blurred vision, Diplopia, Eye inflammation, Eye pain, Vision loss , Photosensitivity, Double Vision Ears, nose, mouth, throat: DENIES: Tinnitus, Hearing loss, Vertigo, Nasal discharge, Oral lesions, Throat pain, Hoarseness, Ear Pain, Running Nose, Epistaxis, Sinus Pain, Toothache, Odynophagia Respiratory: DENIES: Apneas, Cough, Snoring, Wheezing, Hemoptysis, Sputum production, Shortness of breath Gastrointestinal: DENIES: Abdominal pain, Black stools, Bloody stools, Constipation, Diarrhea, Nausea, Vomiting, Difficulty Swallowing, Anorexia Integumentary: DENIES: Abnormal pigmentation, Nail changes, Pruritus, Rash Hematologic/lymphatic: DENIES: Bruising, Lymphadenopathy Immunologic/allergic: DENIES: Eczema, Urticaria Neurologic: DENIES: Abnormal gait, Headache, Localized weakness, Paresthesias, Seizures, Speech Problems, Tremor, Poor Balance Psychiatric: DENIES: Anxiety, Confusion, Mood changes, Depression, Hallucinations, Agitation, Suicidal Ideation, Homicidal Ideation, Delusions Past Family Social History Coded Allergies: *MDRO Multi-Drug Resistant Organism (Verified Adverse Reaction, Unknown, Cleared, 07/17/16) MRSA (arm) - 10/2013 MRSA PCR screen (nares) NEGATIVE - 12/23/15 & 12/27/15 CLEARED PER INFECTION CONTROL PROTOCOL Active Scripts Ibuprofen 800 Mg Mpg365 Mg PO Q8H PRN (Pain/Inflammation) #30 TAB Prov:Susan Lockwood DO 05/11/16 Reported Medications Fluoxetine 20 Mg Cap20 Mg PO DAILY #30 CAP Ref 0 04/15/16 Thiamine 50 Mg Cap50 Mg PO DAILY Ref 0 04/15/16 Gabapentin 300 Mg Oum383 Mg PO TID #90 CAP Ref 0 04/15/16 Mirtazapine 15 Mg Tab15 Mg PO HS #30 TAB Ref 0 04/15/16 Prazosin (Minipress)2 Mg Cap2 Mg PO BID #60 CAP Ref 0 04/15/16 [place] Carbonate 300 Mg Goj133 Mg PO TID Ref 0 04/15/16 Lurasidone (Latuda)40 Mg Tab40 Mg PO DAILY #30 TAB Ref 0 04/15/16 Folic Acid 5 Mg Cap5 Mg PO DAILY Ref 0 04/15/16 Quetiapine (Seroquel)400 Mg Grf483 Mg PO HS #30 TAB Ref 0 04/15/16 Quetiapine (Seroquel)200 Mg Rsu864 Mg PO BID #60 TAB Ref 0 04/15/16 Current Medications Medications (Trade) Dose Ordered Sig/Vanessa Route Start Time Stop Time Status Last Admin (NS 1000 ml Inj) 1,000 ml @ 150 mls/hr Q6H40M IV 07/15/16 20:00 07/17/16 12:00 (NS Flush) 2 ml UNSCH PRN IV FLUSH 07/15/16 18:00 (NS Flush) 2 ml BID IV FLUSH 07/15/16 21:00 07/16/16 21:53 (Tylenol) 650 mg Q6H PRN PO 07/15/16 18:00 (Morphine Inj) 2 mg Q2H PRN IV 07/15/16 18:00 (Pepcid Inj) 20 mg Q12HR IV PUSH 07/15/16 21:00 07/17/16 09:18 (Ativan Inj) 2 mg Q4H PRN IV 07/15/16 18:00 (Zofran Inj) 4 mg Q6H PRN IV 07/15/16 18:00 (Reglan Inj) 10 mg Q6H PRN IV 07/15/16 18:00 (Colace Liq) 100 mg Q12H G-TUBE 07/15/16 18:00 07/16/16 06:11 (Lovenox Inj) 40 mg Q24H SQ 07/15/16 20:00 07/16/16 21:53 Miscellaneous Information 1 Q361D XX 07/15/16 18:00 07/15/16 18:00 (Chlorhexidine 2% Cloth) 3 pack Taper DAILY@04 TOP 07/16/16 04:00 07/12/17 03:59 07/17/16 04:00 Chlorhexidine Gluconate 3 pack 3 pack UNSCH PRN TOP 07/15/16 18:00 (Diprivan 1000 Mg/100ml Inj) 100 ml @ 0 mls/hr TITRATE IV 07/15/16 18:00 07/16/16 08:56 Family History He denies Social History Patient was born and raised in [place], he has been living in [place] for 5 years, he was living on his mother, but recently has been homeless, is unemployed, single, his level of education is GED Physical Exam Vital Signs Vital Signs Date Time Temp Pulse Resp B/P Pulse Ox O2 Delivery O2 Flow Rate FiO2 2/10/17 10:00 69 07/17/16 08:15 95 07/17/16 08:00 98.1 14 138/90 07/16/16 19:15 Nasal Cannula 2.00 07/16/16 12:00 40 I/O 07/16/16 07/16/16 07/17/16 08:00 16:00 00:00 Intake Total 1616 ml 1558 ml 1149 ml Output Total 2430 ml 175 ml 600 ml Balance -814 ml 1383 ml 549 ml Mental Status Examination Appearance man, age appearing, multiple in different stages of healing lacerations in both arms, cooperative, but irritable, guarded, Speech: Hesitant Orientation: x3 Memory: Unremarkable Thought Process: Logical Thought Content: Unremarkable Hallucination Type: None Suicidal Ideation: No Previous Suicide Attempts: Yes Homicidal Ideation: No Previous Homicide Attempts: No Judgement: WNL Affect: Irritable Mood: Oppositional Motor Activity: Normal gait Assessment & Plan Problem List: (1) Suicidal overdose ICD Code: T50.902A (2) Polysubstance dependence Assessment & Plan: On psychiatric evaluation today the patient is irritable, guarded, he denies suicidal intentions in his recent overdose with drugs. He denies depressive symptoms, he denies anxiety, he denies perceptual disturbances , he denies suicidal ideation, he denies homicidal ideation, he denies visual and auditory hallucinations. Based on psychiatric evaluation and also EMR review the patient has a extensive history of polysubstance dependence, previous overdoses, suicidal and parasuicidal behavior, and he does not benefit of a psychiatric admission at this moment, he would really benefit of a detox, inpatient rehabilitation program, he was oriented about this possibility, but he refused. Due to character structure and continues use of drugs patient carries a permanent chronic risk of suicidality, crime and impulsive behavior. At This moment the patient does not meet criteria for psychiatric admission, Young act will be lifted. Extensive support, psychoeducation motivation provided. ICD Code: F19.20 Assessment & Plan Estimated LOS: days Problem Qualifiers (1) Suicidal overdose: Qualified Code: T50.902A - Suicidal overdose, initial encounter Juvenal Hyatt MD Jul 17, 2016 15:35
--- NOTE | 2016-07-17 19:08 | HHI.PR ---
Subjective Remarks Patient seen this morning. Discussed with nursing. No acute changes. Patient says he feels well. Denies any chest pain or shortness of breath. He denies wanting to kill himself. Objective Vital Signs Date Time Temp Pulse Resp B/P Pulse Ox O2 Delivery O2 Flow Rate FiO2 07/17/16 18:00 82 07/17/16 16:00 80 07/17/16 16:00 98.1 80 17 131/73 94 07/17/16 14:00 70 07/17/16 12:00 98.1 68 17 139/84 96 07/17/16 12:00 68 07/17/16 10:00 69 07/17/16 08:15 95 07/17/16 08:00 68 07/17/16 08:00 98.1 69 14 138/90 96 07/17/16 06:00 71 07/17/16 04:00 67 07/17/16 04:00 98.1 67 16 141/84 99 07/17/16 02:00 67 07/17/16 00:00 98.4 68 13 139/87 100 07/17/16 00:00 68 07/16/16 22:00 62 07/16/16 20:00 98.8 67 16 132/81 100 07/16/16 20:00 67 07/16/16 19:15 99 Nasal Cannula 2.00 I/O 07/16/16 07/16/16 07/16/16 07/17/16 07/17/16 07/17/16 07:00 15:00 23:00 07:00 15:00 23:00 Intake Total 1616 ml 1558 ml 1149 ml 1190 ml 1416 ml 1047 ml Output Total 2430 ml 175 ml 600 ml 650 ml 1750 ml 1000 ml Balance -814 ml 1383 ml 549 ml 540 ml -334 ml 47 ml Intake Oral 240 ml 360 ml IV Total 1616 ml 1386 ml 1149 ml 1190 ml 1176 ml 687 ml Tube Feeding 172 ml Output Urine Total 1430 ml 175 ml 600 ml 650 ml 1750 ml 1000 ml Stool Total 0 ml Gastric Drainage Total 1000 ml Result Diagram: 07/17/16 04407/17/16440 Objective Remarks GENERAL: Patient sitting up in bed. Appears comfortable. He is alert and oriented 3. SKIN: Warm and dry. HEAD: Normocephalic. EYES: No scleral icterus. No injection or drainage. NECK: Supple, trachea midline. No JVD. Patient does have very superficial laceration over the anterior neck with no surrounding erythema or signs of infection. Of note he denies trying to cut himself. CARDIOVASCULAR: Regular rate and rhythm without murmurs, gallops, or rubs. RESPIRATORY: Breath sounds equal bilaterally. No accessory muscle use. GASTROINTESTINAL: Abdomen soft, non-tender, nondistended. MUSCULOSKELETAL: No cyanosis, or edema. BACK: Nontender without obvious deformity. No CVA tenderness. A/P Assessment and Plan //Suspected suicide attempt Appreciate psychiatry evaluation. Young act has been lifted. //Depression. Home medications as per psychiatry //Polysubstance overdose. -Normal EKG. Monitor for withdrawal. //Hypokalemia. Acute. Potassium 3.3. Replaced. Monitor. //Transaminitis. AST increasing. Likely secondary to drug overdose versus alcoholism. Will monitor for stability. Prophylaxis. Lovenox. Pepcid. Discharge Planning Likely discharge tomorrow if labs stable. Gabriel Vu MD Jul 17, 2016 19:08
[2016-07-17] MEDS: ENOXAPARIN SODIUM 40 MG/0.4 ML SYRINGE SQ SCH (21:30)
[2016-07-17] MEDS: QUEtiapine FUMARATE 200 MG TAB PO SCH (21:31)
[2016-07-18 01:01] VITALS: BP 117/72; PULSE 70; RESP 18; TEMP 97.8; O2SAT 96
[2016-07-18] MEDS: SODIUM CHLOR 0.9% 1000 ML INJ 1,000 ML IV SCH ×2 (01:20→08:00)
[2016-07-18] MEDS: DOCUSATE SODIUM 100 MG/10 ML UDC G-TUBE SCH (03:54)
[2016-07-18 04:21] VITALS: BP 124/79; PULSE 67; RESP 18; TEMP 97.5; O2SAT 96
[2016-07-18 05:10] VITALS: O2SAT 93
[2016-07-18 08:28] VITALS: BP 124/81; PULSE 64; RESP 18; TEMP 97.8; O2SAT 96
[2016-07-18 09:00] VITALS: PULSE 60
[2016-07-18] MEDS: FAMOTIDINE 20 MG/2 ML VIAL IV PUSH SCH (09:34)
[2016-07-18] MEDS: LITHIUM CARBONATE 300 MG CAP PO SCH ×2 (09:34→14:34)
[2016-07-18] MEDS: QUEtiapine FUMARATE 200 MG TAB PO SCH (09:34)
[2016-07-18] MEDS: SODIUM CHLORIDE 0.9% FLUSH 5 ML FLUSH IV FLUSH SCH (09:38)
[2016-07-18 09:41] LABS: AUTOMATED NEUTROPHIL # 3.4 TH/MM3 (1.8-7.7); BASOPHIL % 0.5 % (0.0-2.0); EOSINOPHIL # 0.1 TH/MM3 (0-0.4); EOSINOPHIL % 1.3 % (0.0-4.0); HEMATOCRIT 44.2 % (39.0-51.0); HEMO FLAGS DIFF FINAL; LYMPH % 31.6 % (9.0-44.0); LYMPHOCYTE # 1.9 TH/MM3 (1.0-4.8); MEAN CELL VOLUME 89.6 FL (80.0-100.0); MEAN CORPUSCULAR HEMOGLOBIN 30.4 PG (27.0-34.0); MEAN CORPUSCULAR HGB CONC 33.9 % (32.0-36.0); MONO % 10.4 % (0.0-8.0); NEUT % 56.2 % (16.0-70.0); PLATELET COUNT 170 TH/MM3 (150-450); RED BLOOD COUNT 4.93 MIL/MM3 (4.50-5.90); RED CELL DISTRIBUTION WIDTH 13.8 % (11.6-17.2)
[2016-07-18 10:03] LABS: BICARBONATE 26.3 MEQ/L (21.0-32.0); MAGNESIUM 1.9 MG/DL (1.5-2.5); POTASSIUM 3.8 MEQ/L (3.5-5.1)
[2016-07-18 12:10] VITALS: BP 117/72; PULSE 70; RESP 16; TEMP 97.8; O2SAT 95
[2016-07-18] MEDS ORDERED: SERO200T PO (12:45)
[2016-07-18] MEDS ORDERED: LITH300C2 PO (12:45)
[2016-07-18] MEDS ORDERED: SERO400T PO (12:45)
[2016-07-18] MEDS ORDERED: FLUO20CA4 PO (12:45)
[2016-07-18] MEDS ORDERED: LURA40 PO (12:45)
--- NOTE | 2016-07-29 06:53 | HHI.DS ---
Discharge Summary Admission Date Jul 15, 2016 at 17:46 Discharge Date: Jul 18, 2016 Admitting Diagnosis Overdose (1) Bipolar affective disorder ICD Code: F31.9 (2) Suicidal overdose ICD Code: T50.902A Procedures none Brief History - From Admission 30-year-old very unfortunate male with history of depressions and polysubstance abuse brought in by EMS with OPA in place, ventilations assisted by BVM. Per EMS patient took some of his mother's pills at home in an attempt to commit suicide. He has history of suicide attempts in the past. Patient was unresponsive and was intubated by ER attending. Imaging Last Impressions Chest X-Ray 07/15/16 1640 Signed Impressions: Service Date/Time: Friday, July 15, 2016 14:52 - CONCLUSION: No acute cardiopulmonary process. Joesph Tamayo MD PE at Discharge GENERAL: sitting up in bed. appear comfortable. aaox3. denies si/hi SKIN: Warm and dry. HEAD: Normocephalic. EYES: No scleral icterus. No injection or drainage. NECK: Supple, trachea midline. No JVD or lymphadenopathy. CARDIOVASCULAR: Regular rate and rhythm without murmurs, gallops, or rubs. RESPIRATORY: Breath sounds equal bilaterally. No accessory muscle use. GASTROINTESTINAL: Abdomen soft, non-tender, nondistended. MUSCULOSKELETAL: No cyanosis, or edema. BACK: Nontender without obvious deformity. No CVA tenderness. Pt update on day of discharge says he feels well. no complaints.wants to go home. Hospital Course Patient was subsequently extubated. Hypokalemia replaced and resolved. Psychiatry was consulted and saw the patient. Added lithium. Also, AST mildly elevated, improved during admission. Will need a follow-up with primary care.Young act lifted by psychiatry.Will need to follow-up with psychiatry as outpatient. For problem-based summary from most recent progress note, please see below. //Suspected suicide attempt Appreciate psychiatry evaluation. Young act has been lifted. //Depression. Home medications as per psychiatry //Polysubstance overdose. -Normal EKG. Monitor for withdrawal. //Hypokalemia. Acute. Potassium 3.3. Replaced. Monitor. //Transaminitis. AST increasing. Likely secondary to drug overdose versus alcoholism. Will monitor for stability. Prophylaxis. Lovenox. Pepcid. Pt Condition on Discharge: Good Discharge Disposition: Discharge Home Discharge Time: <= 30 minutes Discharge Instructions DIET: Follow Instructions for: As Tolerated, No Restrictions Activities you can perform: Regular-No Restrictions Follow up Referrals: PCP Follow-up - 1 Week Psychiatry Adult - 2-3 Days Psychiatry Adult - 2-3 Days with [facility] Changed Medications: Zena Carbonate (Zena Carbonate) 300 Mg Cap 300 MG PO BID Agitation #28 Ref 0 CAP (Changed from: TID) Continued Medications: Fluoxetine (Fluoxetine) 20 Mg Cap 20 MG PO DAILY Depression Control #30 Ref 0 CAP (This prescription has been renewed) Folic Acid (Folic Acid) 5 Mg Cap 5 MG PO DAILY Nutritional Supplement Ref 0 CAP Lurasidone (Latuda) 40 Mg Tab 40 MG PO DAILY Agitation #30 Ref 0 TAB (This prescription has been renewed) Quetiapine (Seroquel) 200 Mg Tab 200 MG PO BID Agitation #60 Ref 0 TAB (This prescription has been renewed) Quetiapine (Seroquel) 400 Mg Tab 400 MG PO HS Insomnia #30 Ref 0 TAB (This prescription has been renewed) Thiamine (Thiamine) 50 Mg Cap 50 MG PO DAILY Nutritional Supplement Ref 0 CAP Discontinued Medications: Gabapentin (Gabapentin) 300 Mg Cap 300 MG PO TID #90 Ref 0 CAP Ibuprofen (Ibuprofen) 800 Mg Tab 800 MG PO Q8H PRN Pain/Inflammation #30 TAB Mirtazapine (Mirtazapine) 15 Mg Tab 15 MG PO HS Depression Control #30 Ref 0 TAB Prazosin (Minipress) 2 Mg Cap 2 MG PO BID Blood Pressure Management #60 Ref 0 CAP Gabriel Vu MD Jul 29, 2016 06:52
== END 2016-07-18 15:02 | disposition home or self-care (01) | DRG 917 ==
LOC: NEPC 16:16 → NEDA 17:46 → HIMN 07-16 00:40 → N05A 07-17 18:52
PROVIDERS: ADMIT Internal Medicine; ATTEND Internal Medicine
PROC: 5A1935Z Respiratory Ventilation, Less than 24 Consecutive Hours (ICD-10-PCS; principal; 2016-07-15)
PROC: 0BH17EZ Insertion of Endotracheal Airway into Trachea, Via Natural or Artificial Opening (ICD-10-PCS; 2016-07-15)
DX: T50.902A Poisoning by unspecified drugs, medicaments and biological substances, intentional self-harm, initial encounter (principal); J96.00 Acute respiratory failure, unspecified whether with hypoxia or hypercapnia; F31.9 Bipolar disorder, unspecified; F17.210 Nicotine dependence, cigarettes, uncomplicated; Z91.5 Personal history of self-harm; K21.9 Gastro-esophageal reflux disease without esophagitis; Z86.73 Personal history of transient ischemic attack (TIA), and cerebral infarction without residual deficits; F60.9 Personality disorder, unspecified; F19.24 Other psychoactive substance dependence with psychoactive substance-induced mood disorder; E87.6 Hypokalemia; Y92.9 Unspecified place or not applicable
CPT/HCPCS: 31500; 36600; 51702; 71010; 80053; 80069; 80178; 80307; 80320; 80329; 81001; 82140; 82248; 82550; 82805; 82948; 83605; 83735; 84100; 84484; 85025; 85610; 85730; 87641; 93005; 94002; 94003; 96365; G0480; J0330; J1650; J7030

== ENCOUNTER 2016-07-21 01:18 | Emergency (ER) | payer OTHER ==
[2016-07-21] VITALS (7 sets, daily range): BP systolic 110–147; BP diastolic 58–85; PULSE 80–102; RESP 18–19; TEMP 98.5–99.2; O2SAT 95–100
[~2016-07-21] VITALS: Ht 182.9 cm; Wt 75.0 kg
[~2016-07-21 01:18] MED LIST changes: -GABA300C5 PO; -IBUP800T23 PO; -MIRTA15 PO; -PRAZ2 PO
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
[2016-07-21] MEDS ORDERED: HALOPERIDOL LACTATE 5 MG/ML AMP IM ONE (01:45)
[2016-07-21] MEDS ORDERED: LORazepam 2 MG/ML VIAL IV ONE (01:45)
[2016-07-21 01:55] LABS: AUTOMATED NEUTROPHIL # 6.1 TH/MM3 (1.8-7.7); BASOPHIL # 0.1 TH/MM3 (0-0.2); BASOPHIL % 0.6 % (0.0-2.0); EOSINOPHIL # 0.2 TH/MM3 (0-0.4); EOSINOPHIL % 1.6 % (0.0-4.0); HEMATOCRIT 47.9 % (39.0-51.0); HEMO FLAGS DIFF FINAL; LYMPH % 28.5 % (9.0-44.0); LYMPHOCYTE # 2.8 TH/MM3 (1.0-4.8); MEAN CELL VOLUME 88.8 FL (80.0-100.0); MEAN CORPUSCULAR HEMOGLOBIN 31.3 PG (27.0-34.0); MEAN CORPUSCULAR HGB CONC 35.3 % (32.0-36.0); MONO % 7.1 % (0.0-8.0); NEUT % 62.2 % (16.0-70.0); PLATELET COUNT 240 TH/MM3 (150-450); RED BLOOD COUNT 5.39 MIL/MM3 (4.50-5.90); RED CELL DISTRIBUTION WIDTH 14.2 % (11.6-17.2); WHITE BLOOD COUNT 9.8 TH/MM3 (4.0-11.0)
[2016-07-21 02:03] LABS: AMPHETAMINE, URINE POS (NEG); BARBITURATES, URINE NEG (NEG); COCAINE, URINE POS (NEG)
[2016-07-21 02:13] LABS: ALKALINE PHOSPHATASE 143 U/L (45-117); ALT (GPT) 58 U/L (12-78); ANION GAP 11 MEQ/L (5-15); AST (GOT) 52 U/L (15-37); BICARBONATE 22.5 MEQ/L (21.0-32.0); BLOOD UREA NITROGEN 7 MG/DL (7-18); CHLORIDE 109 MEQ/L (98-107); GLOMERULAR FILTRATION RATE 90 ML/MIN (>89); SODIUM (NA) 142 MEQ/L (136-145); TOTAL BILIRUBIN ADULT 0.1 MG/DL (0.2-1.0)
--- NOTE | 2016-07-21 02:17 | RADRPT ---
EXAM DATE/TIME: 07/21/2016 01:52 [facility] COMPARISON: No previous studies available for comparison. INDICATIONS : Laceration to left hand. MEDICAL HISTORY : None. SURGICAL HISTORY : None. ENCOUNTER: Initial ACUITY: 1 day PAIN SCORE: Non-responsive. LOCATION: Left hand. FINDINGS: Three view examination of the left hand demonstrates no soft tissue swelling, dislocation, or fractur e. The carpal bones appear intact. The interphalangeal and metacarpophalangeal joints are intact. Bony mineralization is normal. CONCLUSION: 1. Negative examination of the hand. Royce Live MD on July 21, 2016 at 2:15 Board Certified Radiologist. This report was verified electronically.
[2016-07-21 02:20] LABS: ACETAMINOPHEN LESS THAN 2.0 MCG/ML (10.0-30.0); POTASSIUM 4.3 MEQ/L (3.5-5.1)
[2016-07-21] MEDS ORDERED: SODIUM CHLOR 0.9% 1000 ML INJ 1,000 ML IV ONE (02:30)
[2016-07-21] MEDS ORDERED: TETANUS/DIPHTHERIA TOXOID ADULT 0.5 ML VIAL IM ONE (02:30)
[2016-07-21] MEDS ORDERED: ceFAZolin 2 GM PREMIX 50 ML IV ONE (02:30)
[2016-07-21] MEDS ORDERED: CEPH-460 PO (02:49)
== END 2016-07-22 01:35 ==
LOC: NEPE 01:18 → NEPJ 07-22 01:35
DX: S61.412A Laceration without foreign body of left hand, initial encounter (principal); W26.0XXA Contact with knife, initial encounter; F19.129 Other psychoactive substance abuse with intoxication, unspecified; F10.20 Alcohol dependence, uncomplicated; Y90.8 Blood alcohol level of 240 mg/100 ml or more; Z23 Encounter for immunization
CPT/HCPCS: 73130; 80053; 80178; 80307; 80320; 85025; 90471; 90714; 96365; 96372; 96374; 99285; J0690; J1630; J2060; J7030; 80329; G0480

== ENCOUNTER 2016-08-09 01:19 | Emergency (ER) | payer SELFPAY ==
[~2016-08-09] VITALS: Ht 165.1 cm; Wt 68.0 kg
[~2016-08-09 01:19] MED LIST changes: +CEPH-460 PO
[2016-08-09 01:51] VITALS: BP 153/84; PULSE 93; RESP 16; TEMP 98.2; O2SAT 100
[2016-08-09 02:00] LABS: BASOPHIL # 0.1 TH/MM3 (0-0.2); BASOPHIL % 0.7 % (0.0-2.0); EOSINOPHIL # 0.1 TH/MM3 (0-0.4); EOSINOPHIL % 0.9 % (0.0-4.0); HEMATOCRIT 42.8 % (39.0-51.0); HEMO FLAGS DIFF FINAL; LYMPH % 29.5 % (9.0-44.0); LYMPHOCYTE # 2.5 TH/MM3 (1.0-4.8); MEAN CELL VOLUME 88.8 FL (80.0-100.0); MEAN CORPUSCULAR HEMOGLOBIN 30.7 PG (27.0-34.0); MEAN CORPUSCULAR HGB CONC 34.6 % (32.0-36.0); MONO % 9.5 % (0.0-8.0); NEUT % 59.4 % (16.0-70.0); PLATELET COUNT 233 TH/MM3 (150-450); RED BLOOD COUNT 4.82 MIL/MM3 (4.50-5.90); RED CELL DISTRIBUTION WIDTH 13.9 % (11.6-17.2); WHITE BLOOD COUNT 8.4 TH/MM3 (4.0-11.0)
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
[2016-08-09 02:42] LABS: BICARBONATE 27.2 MEQ/L (21.0-32.0); POTASSIUM 3.5 MEQ/L (3.5-5.1)
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
== END 2016-08-09 03:42 | disposition home or self-care (01) ==
LOC: NEPE 01:19
DX: S50.01XA Contusion of right elbow, initial encounter (principal); V29.9XXA Motorcycle rider (driver) (passenger) injured in unspecified traffic accident, initial encounter
CPT/HCPCS: 71010; 73070; 73080; 80048; 85025; 86850; 86900; 86901; 99283

== ENCOUNTER 2016-09-03 22:35 | Emergency (ER) | payer OTHER ==
[~2016-09-03] VITALS: Ht 182.9 cm; Wt 75.0 kg
[~2016-09-03 22:35] MED LIST changes: -CEPH-460 PO; -FOLI5CAP PO; -LITH300C2 PO; -SERO400T PO
[2016-09-03 23:01] VITALS: BP 129/85; PULSE 110; RESP 20; TEMP 98.8; O2SAT 98
[2016-09-03 23:37] LABS: AUTOMATED NEUTROPHIL # 4.6 TH/MM3 (1.8-7.7); BASOPHIL # 0.1 TH/MM3 (0-0.2); BASOPHIL % 0.7 % (0.0-2.0); EOSINOPHIL # 0.1 TH/MM3 (0-0.4); EOSINOPHIL % 0.9 % (0.0-4.0); HEMATOCRIT 43.9 % (39.0-51.0); HEMO FLAGS DIFF FINAL; LYMPH % 33.8 % (9.0-44.0); LYMPHOCYTE # 2.7 TH/MM3 (1.0-4.8); MEAN CELL VOLUME 88.7 FL (80.0-100.0); MEAN CORPUSCULAR HEMOGLOBIN 30.5 PG (27.0-34.0); MEAN CORPUSCULAR HGB CONC 34.4 % (32.0-36.0); MONO % 6.8 % (0.0-8.0); NEUT % 57.8 % (16.0-70.0); PLATELET COUNT 218 TH/MM3 (150-450); RED BLOOD COUNT 4.95 MIL/MM3 (4.50-5.90); RED CELL DISTRIBUTION WIDTH 13.7 % (11.6-17.2); WHITE BLOOD COUNT 7.9 TH/MM3 (4.0-11.0)
[2016-09-03 23:51] LABS: ALKALINE PHOSPHATASE 141 U/L (45-117); ALT (GPT) 36 U/L (12-78); ANION GAP 10 MEQ/L (5-15); AST (GOT) 38 U/L (15-37); BICARBONATE 25.4 MEQ/L (21.0-32.0); BLOOD UREA NITROGEN 8 MG/DL (7-18); CHLORIDE 108 MEQ/L (98-107); GLOMERULAR FILTRATION RATE 81 ML/MIN (>89); SODIUM (NA) 143 MEQ/L (136-145); TOTAL BILIRUBIN ADULT 0.2 MG/DL (0.2-1.0)
[2016-09-04] MEDS ORDERED: ACETAMINOPHEN 500 MG CPLT PO ONE (00:15)
[2016-09-04] MEDS ORDERED: TETANUS/DIPHTHERIA TOXOID ADULT 0.5 ML VIAL IM ONE (00:15)
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
[2016-09-04 00:37] LABS: AMPHETAMINE, URINE NEG (NEG); BARBITURATES, URINE NEG (NEG); COCAINE, URINE NEG (NEG)
[2016-09-04 03:00] VITALS: BP 132/75; PULSE 88; RESP 18; O2SAT 97
[2016-09-04 11:15] VITALS: BP 135/75; PULSE 79; RESP 18; O2SAT 98
[2016-09-04 11:39] VITALS: BP 129/79; PULSE 86; RESP 18; TEMP 98.6; O2SAT 98
--- NOTE | 2016-09-04 14:18 | PD ---
History of Present Illness Chief Complaint: Psychiatric Symptoms Time Seen by Provider: 09:00 Travel History International Travel<30 Days: No Contact w/Intl Traveler<30days: No Known affected area: No Legal Status Legal Status: Young Act Young Act Signed By: Paige Young Act Comment: Signed by [facility] Officer Luis Palacio #[id number]. History of Present Illness: History of Present Illness HPI Patient is a 30-year-old male with history of bipolar disorder, ptsd, substance use disorder who presents emergency department on Young act after reporting to DESIRAE shipley that he was thinking about hurting himself. According to Young act the patient changed his mind as to whether or not he was truly suicidal on the way to the emergency department . per ed documentation he denied suicidal ideation when asked by ED provider. Patient is known to [facility] psychiatric department as he has had multiple visits to ED. He was last evaluated by Dr. Juvenal Hyatt on Jul 15, 2016 after he was hospitalized for an overdose of his mother's medication. He reported that it was not a suicide attempt. At the time he tested positive for cocaine, benzodiazepines, amphetamines and cannabis. His last admission to [facility] was 2015 under the care of Dr. Thao. Patient is seen in main ED. I attempted to complete psychiatric evaluation but patient was irritable, easily agitated and did not cooperate. He did report that he felt like hanging himself and that he has been off his psychiatric medications x 1 week due to not having any money to get his medication. He did not offer any other information and becomes increasingly agitated with further questioning. Current toxicology is positive for benzos as well as cannabinoids. BAL of 231. PFSH Past Medical History ADHD: Yes ( A CHILD) Arthritis: No Asthma: No Bipolar Disorder: Yes Anxiety: Yes Depression: Yes High Cholesterol: No Cerebrovascular Accident: Yes Diminished Hearing: No Endocrine: No Gastrointestinal Disorders: Yes GERD: Yes Genitourinary: No Hiatal Hernia: Yes (POSSIBLE) Hypertension: No Immune Disorder: No Implanted Vascular Access Dvce: No Kidney Stones: No Musculoskeletal: Yes Neurologic: No Psychiatric: Yes (Bipolar Disorder, Schizophrenia, borderline personailty, anxiety, PTSD) Reproductive: No Respiratory: No Immunizations Current: Yes Migraines: No Schizophrenia: Yes Sleep Apnea: No Thyroid Disease: No Ulcer: No Past Surgical History Pacemaker: No Other Surgery: No Psychiatric History Psychiatric History Hx Psychiatric Treatment: Previous hosp at [facility] as well as [facility] outpatietn tretametn at [facility] History of Inpatient Treatment: Yes Guns or firearms in home: No Social History unable to obtain as patient is uncooperative Hx Alcohol Use: Yes (DAILY) Hx Tobacco Use: Yes (1 PPD ) Hx Substance Use: Yes (COCAINE, MARIJUANA) Substance Use Type: Alcohol, Marijuana, Amphetamines-Stimulants, Benzos (Valium ,Xanax), Cocaine Other Substances Used: DAILY ALCOHOL. Hx of Substance Use Treatment: No Family Psychiatric History unable to obtain Allergies-Medications (Allergen,Severity, Reaction): Coded Allergies: *MDRO Multi-Drug Resistant Organism (Verified Adverse Reaction, Unknown, Cleared, 08/09/16) MRSA (arm) - 10/2013 MRSA PCR screen (nares) NEGATIVE - 12/23/15 & 12/27/15 CLEARED PER INFECTION CONTROL PROTOCOL Reported Meds & Prescriptions Reported Meds & Active Scripts Active Fluoxetine (Fluoxetine HCl) 20 Mg Cap 20 Mg PO DAILY Latuda (Lurasidone) 40 Mg Tab 40 Mg PO DAILY Seroquel (Quetiapine Fumarate) 200 Mg Tab 200 Mg PO BID Reported Thiamine (Thiamine HCl) 50 Mg Cap 50 Mg PO DAILY Review of Systems ROS Limitations: Uncooperative Exam Alert: Yes Henderson: Person (ox4) Mood: Agitated, Angry Affect: Other (congruebnt) Speech: Clear (loud tone, using profane language) Eye Contact: None Memory Intact: Comment (not tetsed) Hallucinations: Other (does not appear to be responding to internal stimuli) Delusions: No Suicidal: Ideation (reports thoughts of hanging) Homicidal: Ideation (unable to determine) Insight/Judgement poor. poor [facility] Medical Decision Making Medical Record Reviewed: Yes Assessment/Plan 30 year old male with hx of substance use disorder, bipolar disorder who is under a BA. At this time patient is uncooperative and becomes agitated when attempts are made to complete psychiatric evaluation. Patietn presents a risk due to his level of volatility and poor impulse control . Patient will remain on Ba. Has been placed on [facility] list for treatment. Orders Complete Blood Count With Diff (09/03/16 23:17) Comprehensive Metabolic Panel (09/03/16 23:17) Psych Screen (09/03/16 23:17) Alcohol (Ethanol) (09/04/16 00:14) Tetanus/Diphtheria Tox Adult (Tetanus/Di (09/04/16 00:15) Acetaminophen (Tylenol) (09/04/16 00:15) Drug Screen, Random Urine (09/04/16 00:23) Diet Regular Basic (09/04/16 Lunch) Results Vital Signs Date Time Temp Pulse Resp B/P Pulse Ox O2 Delivery O2 Flow Rate FiO2 09/04/16 11:39 98.6 86 18 129/79 98 Room Air 09/04/16 11:15 79 18 135/75 98 Room Air 09/04/16 08:00 80 16 09/04/16 03:00 88 18 132/75 97 Room Air 09/03/16 23:01 98.8 110 20 129/85 98 Laboratory Tests Test 09/03/16 23:15 White Blood Count 7.9 Red Blood Count 4.95 Hemoglobin 15.1 Hematocrit 43.9 Mean Corpuscular Volume 88.7 Mean Corpuscular Hemoglobin 30.5 Mean Corpuscular Hemoglobin 34.4 Concent Red Cell Distribution Width 13.7 Platelet Count 218 Mean Platelet Volume 9.2 Neutrophils (%) (Auto) 57.8 Lymphocytes (%) (Auto) 33.8 Monocytes (%) (Auto) 6.8 Eosinophils (%) (Auto) 0.9 Basophils (%) (Auto) 0.7 Neutrophils # (Auto) 4.6 Lymphocytes # (Auto) 2.7 Monocytes # (Auto) 0.5 Eosinophils # (Auto) 0.1 Basophils # (Auto) 0.1 CBC Comment DIFF FINAL Differential Comment Sodium Level 143 Potassium Level 4.0 Chloride Level 108 Carbon Dioxide Level 25.4 Anion Gap 10 Blood Urea Nitrogen 8 Creatinine 1.06 Estimat Glomerular Filtration 81 Rate Random Glucose 96 Calcium Level 8.5 Total Bilirubin 0.2 Aspartate Amino Transf 38 (AST/SGOT) Alanine Aminotransferase 36 (ALT/SGPT) Alkaline Phosphatase 141 Total Protein 7.4 Albumin 3.5 Urine Opiates Screen NEG Urine Barbiturates Screen NEG Urine Amphetamines Screen NEG Urine Benzodiazepines Screen POS Urine Cocaine Screen NEG Urine Cannabinoids Screen POS Ethyl Alcohol Level 231 Diagnosis Primary Impression: Polysubstance abuse Additional Impression: Substance induced mood disorder Condition: Stable Problem Qualifiers Ruth Bustos Sep 04, 2016 14:17
[2016-09-04 19:45] VITALS: BP 123/86; PULSE 84; RESP 17; O2SAT 96
[2016-09-05 02:03] VITALS: BP 122/70; PULSE 69; RESP 18; O2SAT 98
== END 2016-09-05 02:17 ==
LOC: NEDAMB 22:35 → NEPJ 09-05 02:17
DX: F43.20 Adjustment disorder, unspecified (principal); F19.14 Other psychoactive substance abuse with psychoactive substance-induced mood disorder; S90.411A Abrasion, right great toe, initial encounter; V29.9XXA Motorcycle rider (driver) (passenger) injured in unspecified traffic accident, initial encounter; Z23 Encounter for immunization; Z79.899 Other long term (current) drug therapy
CPT/HCPCS: 80053; 80307; 85025; 90471; 90714

== ENCOUNTER 2016-12-16 23:07 | Emergency (ER) | payer SELFPAY ==
[~2016-12-16] VITALS: Ht 182.9 cm; Wt 73.0 kg
[2016-12-16 23:09] VITALS: BP 128/74; PULSE 108; RESP 16; TEMP 98.4; O2SAT 95
== END 2016-12-16 23:50 | disposition left against medical advice (07) ==
LOC: NED 23:07
DX: Z00.8 Encounter for other general examination (principal); Z53.21 Procedure and treatment not carried out due to patient leaving prior to being seen by health care provider
CPT/HCPCS: 99281

== ENCOUNTER 2016-12-23 20:03 | Emergency (ER) | payer OTHER ==
--- NOTE | 2016-12-23 20:39 | PD ---
HPI Chief Complaint: psychiatric evaluation Time Seen by Provider: 20:36 Travel History International Travel<30 days: No Contact w/Intl Traveler<30days: No History of Present Illness HPI Patient comes in under a Young act by police for homicidal and suicidal ideations. Per Young patient was wanting to hurt someone else and then kill himself. Patient admits to this. Patient denies any definitive plans this time though per the Young act patient was going to use a knife to stab himself. Patient denies any thing making this better or worse. He states he is supposed be on medication but has not been able to afford them. Patient reports that he does drink heavily. Patient denies any chest pain, shortness breath, fevers, abdominal pain, headaches, back pain. PFSH Past Medical History ADHD: Yes ( A CHILD) Arthritis: No Asthma: No Bipolar Disorder: Yes Anxiety: Yes Depression: Yes High Cholesterol: No Cerebrovascular Accident: Yes Diminished Hearing: No Endocrine: No Gastrointestinal Disorders: Yes GERD: Yes Genitourinary: No Hiatal Hernia: Yes (POSSIBLE) Hypertension: No Immune Disorder: No Implanted Vascular Access Dvce: No Kidney Stones: No Musculoskeletal: Yes Neurologic: No Psychiatric: Yes (Bipolar Disorder, Schizophrenia, borderline personailty, anxiety, PTSD) Reproductive: No Respiratory: No Immunizations Current: Yes Migraines: No Schizophrenia: Yes Sleep Apnea: No Thyroid Disease: No Ulcer: No Past Surgical History Pacemaker: No Other Surgery: No Social History Alcohol Use: Yes (DAILY) Tobacco Use: Yes (1 PPD ) Substance Use: Yes Allergies-Medications (Allergen,Severity, Reaction): Coded Allergies: *MDRO Multi-Drug Resistant Organism (Verified Adverse Reaction, Unknown, Cleared, 12/16/16) MRSA (arm) - 10/2013 MRSA PCR screen (nares) NEGATIVE - 12/23/15 & 12/27/15 CLEARED PER INFECTION CONTROL PROTOCOL Reported Meds & Prescriptions Reported Meds & Active Scripts Active Latuda (Lurasidone) 40 Mg Tab 40 Mg PO DAILY Seroquel (Quetiapine Fumarate) 200 Mg Tab 200 Mg PO BID Reported Trazodone (Trazodone HCl) 50 Mg Tab 50 Mg PO HS Prazosin (Prazosin HCl) 2 Mg Cap 2 Mg PO BID [place] Carbonate 300 Mg Tab 300 Mg PO TID Gabapentin 300 Mg Cap 300 Mg PO HS Seroquel (Quetiapine Fumarate) 400 Mg Tab 400 Mg PO HS Fluoxetine (Fluoxetine HCl) 20 Mg Capsule 20 Mg PO DAILY Vitamin B-1 (Thiamine HCl) 100 Mg Tab 50 Mg PO DAILY Review of Systems Except as stated in HPI: all other systems reviewed are Neg Physical Exam Narrative GENERAL: Well-developed, well nourished, in no acute distress, and non-ill appearing. SKIN: Focused skin assessment warm and dry. Healing self-limited wound noted left anterior neck. There is no signs of infection at this time. Patient reports is from 2 days ago. HEAD: Atraumatic. Normocephalic. EYES: Pupils equal and round. EOMI. No scleral icterus. No injection or drainage. ENT: No nasal bleeding or discharge. Mucous membranes pink and moist. NECK: Trachea midline. Supple. No nuclear rigidity. CARDIOVASCULAR: Regular rate and rhythm. No murmur appreciated. RESPIRATORY: No accessory muscle use. No respiratory distress. Clear to auscultation. Breath sounds equal bilaterally. MUSCULOSKELETAL: No obvious deformities. No clubbing. No cyanosis. No edema. Full range of motion. NEUROLOGICAL: Awake and alert. No obvious cranial nerve deficits. Motor grossly within normal limits. Normal speech. PSYCHIATRIC: Appears somewhat manic. Data Data Last Documented VS Vital Signs Date Time Temp Pulse Resp B/P Pulse Ox O2 Delivery O2 Flow Rate FiO2 12/23/16 20:40 98.1 117 20 141/71 97 Orders Complete Blood Count With Diff (12/23/16 20:32) Comprehensive Metabolic Panel (12/23/16 20:32) Psych Screen (12/23/16 20:32) Drug Screen, Random Urine (12/23/16 20:32) Alcohol (Ethanol) (12/23/16 20:32) Salicylates (Aspirin) (12/23/16 20:32) Tylenol (Acetaminophen) (12/23/16 20:32) [place] (Li) (12/23/16 20:33) Alcohol Withdrawal Asmt-Ciwa ONCE (12/23/16 22:04) Flumazenil Inj (Romazicon Inj) (12/23/16 22:15) Lorazepam (Ativan) (12/23/16 22:15) Lorazepam Inj (Ativan Inj) (12/23/16 22:15) Lorazepam (Ativan) (12/23/16 22:15) Lorazepam Inj (Ativan Inj) (12/23/16 22:15) Lorazepam Inj (Ativan Inj) (12/23/16 22:15) Lorazepam Inj (Ativan Inj) (12/23/16 22:15) Labs Laboratory Tests Test 12/23/16 12/23/16 20:30 20:50 White Blood Count 9.5 TH/MM3 Red Blood Count 4.77 MIL/MM3 Hemoglobin 14.5 GM/DL Hematocrit 42.2 % Mean Corpuscular Volume 88.4 FL Mean Corpuscular Hemoglobin 30.4 PG Mean Corpuscular Hemoglobin 34.4 % Concent Red Cell Distribution Width 13.5 % Platelet Count 199 TH/MM3 Mean Platelet Volume 9.0 FL Neutrophils (%) (Auto) 63.1 % Lymphocytes (%) (Auto) 28.5 % Monocytes (%) (Auto) 7.2 % Eosinophils (%) (Auto) 0.7 % Basophils (%) (Auto) 0.5 % Neutrophils # (Auto) 6.0 TH/MM3 Lymphocytes # (Auto) 2.7 TH/MM3 Monocytes # (Auto) 0.7 TH/MM3 Eosinophils # (Auto) 0.1 TH/MM3 Basophils # (Auto) 0.0 TH/MM3 CBC Comment DIFF FINAL Differential Comment Sodium Level 142 MEQ/L Potassium Level 4.3 MEQ/L Chloride Level 108 MEQ/L Carbon Dioxide Level 23.7 MEQ/L Anion Gap 10 MEQ/L Blood Urea Nitrogen 9 MG/DL Creatinine 1.05 MG/DL Estimat Glomerular Filtration 81 ML/MIN Rate Random Glucose 87 MG/DL Calcium Level 8.1 MG/DL Total Bilirubin 0.3 MG/DL Aspartate Amino Transf 40 U/L (AST/SGOT) Alanine Aminotransferase 33 U/L (ALT/SGPT) Alkaline Phosphatase 130 U/L Total Protein 7.1 GM/DL Albumin 3.7 GM/DL Salicylates Level 4.0 MG/DL Urine Opiates Screen NEG Acetaminophen Level LESS THAN 2.0 MCG/ML Urine Barbiturates Screen NEG Urine Amphetamines Screen POS Urine Benzodiazepines Screen POS Urine Cocaine Screen POS Urine Cannabinoids Screen NEG Ethyl Alcohol Level 255 MG/DL [place] Level LESS THAN 0.1 MEQ/L MDM Medical Decision Making Medical Screen Exam Complete: Yes Emergency Medical Condition: Yes Differential Diagnosis Homicidal, suicidal, polysubstance abuse, alcohol intoxication, electrolyte abnormality, other Narrative Course Patient was seen and examined. Labs were obtained and reviewed. Patient medically cleared for further treatment and evaluation by psych. Final disposition per psych. Diagnosis Primary Impression: Alcohol intoxication Qualified Code: F10.920 - Alcohol intoxication, uncomplicated Additional Impressions: Polysubstance abuse Medical clearance for psychiatric admission Condition: Stable Joe Handy Dec 23, 2016 20:39
[2016-12-23 20:40] VITALS: BP 141/71; PULSE 117; RESP 20; TEMP 98.1; O2SAT 97
[2016-12-23] MEDS ORDERED: SERO400T PO (21:07)
[2016-12-23] MEDS ORDERED: VITA100T54 PO (21:07)
[2016-12-23] MEDS ORDERED: FLUO20CA12 PO (21:07)
[2016-12-23] MEDS ORDERED: PRAZ2CAP PO (21:07)
[2016-12-23] MEDS ORDERED: LITH300T3 PO (21:07)
[2016-12-23] MEDS ORDERED: GABA300C5 PO (21:07)
[2016-12-23] MEDS ORDERED: TRAZ50TA12 PO (21:08)
[2016-12-23 21:13] LABS: BASOPHIL % 0.5 % (0.0-2.0); EOSINOPHIL # 0.1 TH/MM3 (0-0.4); EOSINOPHIL % 0.7 % (0.0-4.0); HEMATOCRIT 42.2 % (39.0-51.0); HEMO FLAGS DIFF FINAL; LYMPH % 28.5 % (9.0-44.0); LYMPHOCYTE # 2.7 TH/MM3 (1.0-4.8); MEAN CELL VOLUME 88.4 FL (80.0-100.0); MEAN CORPUSCULAR HEMOGLOBIN 30.4 PG (27.0-34.0); MEAN CORPUSCULAR HGB CONC 34.4 % (32.0-36.0); MONO % 7.2 % (0.0-8.0); NEUT % 63.1 % (16.0-70.0); PLATELET COUNT 199 TH/MM3 (150-450); RED BLOOD COUNT 4.77 MIL/MM3 (4.50-5.90); RED CELL DISTRIBUTION WIDTH 13.5 % (11.6-17.2); WHITE BLOOD COUNT 9.5 TH/MM3 (4.0-11.0)
[2016-12-23 21:23] LABS: AMPHETAMINE, URINE POS (NEG); BARBITURATES, URINE NEG (NEG); COCAINE, URINE POS (NEG)
[2016-12-23 21:28] LABS: ANION GAP 10 MEQ/L (5-15); AST (GOT) 40 U/L (15-37); BICARBONATE 23.7 MEQ/L (21.0-32.0); BLOOD UREA NITROGEN 9 MG/DL (7-18); CHLORIDE 108 MEQ/L (98-107); GLOMERULAR FILTRATION RATE 81 ML/MIN (>89); POTASSIUM 4.3 MEQ/L (3.5-5.1); SODIUM (NA) 142 MEQ/L (136-145)
[2016-12-23 21:29] LABS: ALT (GPT) 33 U/L (12-78)
[2016-12-23 21:31] LABS: ACETAMINOPHEN LESS THAN 2.0 MCG/ML (10.0-30.0); ALKALINE PHOSPHATASE 130 U/L (45-117); TOTAL BILIRUBIN ADULT 0.3 MG/DL (0.2-1.0)
[2016-12-23] MEDS ORDERED: LORazepam 2 MG/ML VIAL IV PUSH PRN ×4 (22:15)
[2016-12-23] MEDS ORDERED: FLUMAZENIL 0.5 MG/5 ML VIAL IV PUSH PRN (22:15)
[2016-12-23] MEDS ORDERED: LORazepam 2 MG TAB PO PRN (22:15)
[2016-12-23] MEDS ORDERED: LORazepam 1 MG TAB PO PRN (22:15)
[2016-12-24 00:37] VITALS: BP 131/68; PULSE 96; RESP 18; TEMP 98.4; O2SAT 96
== END 2016-12-24 01:47 ==
LOC: NEPD 20:03 → NEPJ 12-24 01:47
DX: F10.920 Alcohol use, unspecified with intoxication, uncomplicated (principal); F19.10 Other psychoactive substance abuse, uncomplicated; F31.9 Bipolar disorder, unspecified; F20.9 Schizophrenia, unspecified; F60.3 Borderline personality disorder; F43.10 Post-traumatic stress disorder, unspecified; K21.9 Gastro-esophageal reflux disease without esophagitis; Z79.899 Other long term (current) drug therapy; Z86.73 Personal history of transient ischemic attack (TIA), and cerebral infarction without residual deficits
CPT/HCPCS: 80053; 80178; 80307; 85025; 99285